=== PATIENT | female | born 1975 | race Caucasian/White ===

== ENCOUNTER → 2017-05-11 | Outpatient (CLI) | payer OTHER ==
[~2017-05-11] MED LIST: BCPILLS PO
[2017-05-11 12:21] LABS: ALB/GLOB RATIO 1.1 (0.9-2); ALKALINE PHOSPHATASE 73 U/L (45-117); ALT/SGPT 25 U/L (12-78); AST/SGOT 9 U/L (15-37); BLOOD UREA NITROGEN 22 mg/dl (7-18); BUN/CREATININE RATIO 22.3 (10-20); CARBON DIOXIDE 25 mmol/L (21-32); CHLORIDE 110 mmol/L (98-107); CHOLESTEROL 220 mg/dl (0-200); CHOLESTEROL/HDL RATIO 3.2; CREATININE 0.98 mg/dl (0.60-1.20); GLUCOSE 85 mg/dl (70-99); HDL CHOLESTEROL 69 mg/dl; LDL CHOLESTEROL CALCULATED 132 mg/dl; POTASSIUM 4.4 mmol/L (3.5-5.1); SODIUM 141 mmol/L (136-145); TRIGLYCERIDES 96 mg/dl (0-150); VERY LOW DENSITY LIPOPROT CALC 19 mg/dl
--- NOTE | 2017-05-11 14:33 | DIAGNOSTIC IMAGING REPORT ---
RENAL ULTRASOUND CLINICAL HISTORY: Family history of kidney cancer. COMPARISON STUDY: None. TECHNIQUE: Sonography of the kidneys and the urinary bladder was performed. FINDINGS: The right kidney measures 10.7 x 3.6 x 5.5 cm. The left kidney measures 10.8 x 5.4 x 4.8 cm. There is no hydronephrosis. There is a 3 mm echogenic focus within the cortex of the midpole of the right kidney. This has no associated shadowing. No additional renal lesions are present. Renal echogenicity, size and cortical thickness are normal. The bladder is normal. IMPRESSION: 1. 3 mm echogenic right renal lesion. 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 No additional renal lesions. 2. No hydronephrosis. Electronically signed by: Ki Palafox M.D. 05/11/2017 2:32 PM Dictated Date/Time: 05/11/2017 2:24 PM
== END | disposition home or self-care (01) ==
LOC: C.ULTR 06:48
PROVIDERS: ATTEND Physician Assistant
DX: Z00.00 Encounter for general adult medical examination without abnormal findings (principal); N28.9 Disorder of kidney and ureter, unspecified; Z80.51 Family history of malignant neoplasm of kidney

== ENCOUNTER → 2017-10-04 | Outpatient (CLI) | payer OTHER | END | disposition home or self-care (01) | LOC: C.PAPS 15:30 | PROVIDERS: ATTEND Obstetrics & Gynecology | DX: Z01.419 Encounter for gynecological examination (general) (routine) without abnormal findings (principal) ==

== ENCOUNTER → 2018-05-17 | Outpatient (CLI) | payer OTHER | END | disposition home or self-care (01) | LOC: C.LAB 06:54 | PROVIDERS: ATTEND Physician Assistant | DX: Z00.00 Encounter for general adult medical examination without abnormal findings (principal) ==